=== PATIENT | male | born 1970 | race African-American/Black ===

== ENCOUNTER 2017-02-12 08:22 | Emergency (ER) | payer OTHER ==
[~2017-02-12 08:22] MED LIST: FIORICET 50-321 EACH PO; HYDROCHLOROTHIA25 MG PO
== END 2017-02-12 11:30 | disposition home or self-care (01) ==
LOC: CED 08:22
DX: T78.40XA Allergy, unspecified, initial encounter (principal); J45.909 Unspecified asthma, uncomplicated; F17.200 Nicotine dependence, unspecified, uncomplicated; Z98.890 Other specified postprocedural states
CPT/HCPCS: 99283